=== PATIENT | male | born 1945 | race Caucasian/White ===

== ENCOUNTER 2020-12-21 21:36 | Emergency (ER) | payer OTHER, SELFPAY ==
--- NOTE | 2020-12-21 21:38 | DI.CT.S_ITS ---
PROCEDURE: CT HEAD/BRAIN WO CON INDICATIONS: fall with head injury on Xarelto TECHNIQUE: Noncontrast 4.5 mm thick angled axial sections acquired from the foramen magnum to the vertex, with coronal and sagittal reformats. For radiation dose reduction, the following was used: automated exposure control, adjustment of mA and/or kV according to patient size. COMPARISON: None. FINDINGS: Image quality: Excellent. CSF spaces: Basal cisterns are patent. There are bilateral extra-axial fluid collections comprised of mixed density thin subdural hematomas, slightly greater on the right than the left. There is a ventriculostomy catheter that tracks from the right frontal parietal junction to 2 extend to the upper tip of the 3rd ventricle.. The ventricles are symmetric in size and shape. Prior sub of septal craniotomy on the left. This enlarges the 4th ventricle and the adjacent basilar cisterns. Brain: No intracranial bleeds or masses. There is cerebral volume loss for age, with resultant ventricular and sulcal prominence. There are periventricular and deep white matter chronic small vessel ischemic changes. There is intracranial internal carotid artery atherosclerosis. Skull and face: Calvarium and visualized facial bones appear intact, without suspicious lesions. Sinuses: Visualized sinuses and mastoids are clear. IMPRESSION: Ventriculostomy in place from left-sided approach with no sign of ventriculomegaly. Expected postsurgical changes of left suboccipital craniotomy. 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 Two subdural hematomas are present, thin, predominantly chronic in appearance but with several striations of high density material suggestive of recent slight acute additional hemorrhage. For example, series 2, image 14 on the right frontal region, and a similar appearance on the left at the frontal region also, series 2, image 17. Maximal subdural hematoma thickness on the left measures up to 9 mm, and on the right measures up to 4 mm. Dictated by: Catracho Mae M.D. on 12/22/2020 at 10:58 Approved by: Catracho Mae M.D. on 12/22/2020 at 11:01
[2020-12-21 21:51] VITALS: BP 129/72; PULSE 88; RESP 19; TEMP 36.7; O2SAT 96; BMI 29.1
--- NOTE | 2020-12-21 22:01 | ED.FALL ---
HPI - Fall General Chief Complaint: Fall Stated Complaint: GLF Hit head Time Seen by Provider: 12/21/20 21:36 Source: patient Mode of arrival: EMS History of Present Illness HPI Narrative: 75-year-old male nonsmoker with history of a prior intracranial hemorrhage, prior stroke, Atrial fib on Xarelto presents by EMS for a fall from ground level with head injury just prior to arrival. He was walking on some uneven ground and slipped in the grass and fell backwards striking his head. He may have had a brief loss of consciousness but quickly returned to his baseline mentation. 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 At baseline he slurs his words. He has a vague 2/10 headache He has no repeated questioning, vomiting or localizing neurologic symptoms. He does have a vague headache. A He denies other injury and is otherwise well and free of complaint. He is activated as a modified trauma due to fall with head injury on blood thinners Related Data Home Medications Medication Instructions Recorded Confirmed apixaban 5 mg tablet (Eliquis) 5 mg PO BID 04/25/20 dofetilide 125 mcg capsule 125 mcg PO ONCE 04/25/20 (Tikosyn) furosemide 20 mg tablet 10 mg PO QAM 04/25/20 metoprolol succinate 50 mg capsule 50 mg PO DAILY 04/25/20 sprinkle, ext. release 24 hr spironolactone 25 mg tablet 25 mg PO DAILY 04/25/20 aspirin 81 mg tablet,delayed 81 mg PO DAILY 04/29/20 04/29/20 release (Adult Aspirin Regimen) calcium carbonate 500 mg calcium 500 mg PO DAILY 04/29/20 04/29/20 (1,250 mg) tablet (Calcium 500) ejlgnflkqpy-hvo-ytryvemtt-hrb tab PO 04/29/20 04/29/20 149-hyalur 500 mg-500 mg-66.7 mg tablet (Srwffngnboj-Omuxvicicct-FAC (with antiox)) triamcinolone acetonide 0.1 % 1 applictn TOP DAILY 04/29/20 04/29/20 topical cream rosuvastatin 5 mg tablet 5 mg PO DAILY 12/16/20 12/16/20 Previous Rx's Medication Instructions Recorded tamsulosin 0.4 mg capsule 0.4 mg PO BEDTIME #90 cap 05/19/20 dutasteride 0.5 mg capsule 0.5 mg PO DAILY #90 cap 10/14/20 (Avodart) Allergies Allergy/AdvReac Type Severity Reaction Status Date / Time No Known Drug Allergies Allergy Verified 12/16/20 08:33 Review of Systems Review of Systems Narrative: GENERAL: Denies chills, fatigue, malaise, fever, sweats. HEENT: Denies sinus pain, ear pain, sore throat, difficulty swallowing, dizziness. RESPIRATORY: Denies dyspnea, cough, wheezing, hemoptysis, sputum. CARDIOVASCULAR: Denies chest pain, palpitations, orthopnea, edema, GASTROINTESTINAL: Denies nausea, vomiting, abdominal pain, diarrhea, constipation, melena. : Denies dysuria, frequency, incontinence, hematuria, urinary retention. MUSCULOSKELETAL: denies weakness, joint pain, or bony pain SKIN: Denies rash, skin lesions, or other NEUROLOGIC: Denies weakness, headache, numbness, change in speech, confusion, seizures, incoordination. PSYCHIATRIC: No concerning psychosocial issues. 12 point review of systems is negative except for those stated above Patient History Medical History BPH w urinary obs/LUTS Congestive heart failure Elevated PSA Enlarged prostate with lower urinary tract symptoms (LUTS) GERD (gastroesophageal reflux disease) History of elevated PSA History of UTI Incomplete bladder emptying Neurological disease Personal history UTI Prostate cancer Retention of urine Surgical History H/O carpal tunnel repair H/O cystoscopy H/O prostate biopsy H/O vasectomy Family History Father Gout Hearing impairment Brother Inflammatory bowel disease Social History marital status: number of children: 3 occupational status: previously employed Previous occupational history: dentist Smoking Status: Never smoker alcohol intake: current caffeine: Yes Smoking Status: Never smoker alcohol intake frequency: a few times a week Substance Use Type: does not use Exam Narrative Exam Narrative: GENERAL: [75] year old patient appears stated age. Well-developed patient, in mild distress. GCS 15 HEAD: Atraumatic. Normocephalic. Mild scalp contusion left occiput EYES: Pupils equal round and reactive. Extraocular motions intact. No scleral icterus. No injection or drainage. ENT: Nose without bleeding, purulent drainage. Throat without erythema, tonsillar hypertrophy or exudate. Airway patent. NECK: Trachea midline. Non tender CARDIOVASCULAR: Regular rate and rhythm without murmurs, gallops, or rubs. RESPIRATORY: Clear to auscultation. Breath sounds equal bilaterally. No wheezes, rales, or rhonchi. GASTROINTESTINAL: Abdomen soft, non-tender, nondistended. EXTREMITIES: No edema or joint tenderness. BACK: Nontender without deformity or crepitance. No flank tenderness. NEURO: AOx3. SKIN: No rash or erythema of visible areas Initial Vital Signs Initial Vital Signs: Vital Signs Temperature 98.1 F 12/21/20 21:51 Pulse Rate 88 12/21/20 21:51 Respiratory Rate 19 12/21/20 21:51 Blood Pressure 129/72 12/21/20 21:51 Pulse Oximetry 96 12/21/20 21:51 Course Orders Ordered: Discontinued Medications Prothrombin Complex Concent ( Human) 2,000 unit/Miscellaneous 80 mls @ 702.158 mls/hr IV NOW ONE; Protocol Stop: 12/21/20 23:14 Last Infusion: 12/22/20 00:07 Dose: 0 unit/kg/min, 0 mls/hr Documented by: Admin: 12/21/20 23:45 Dose: 3 unit/kg/min, 702.158 mls/hr Documented by: [email or web address] Consultations Consultation #1: Dr. Adan happy to accept at [facility] [place] Vital Signs Vital signs: Vital Signs - 8 hr 12/21/20 21:51 12/21/20 22:35 12/21/20 23:00 Temperature 98.1 F Pulse Rate 88 85 87 Respiratory Rate 19 27 H 26 H Blood Pressure 129/72 Pulse Oximetry 96 95 97 12/21/20 23:02 Temperature Pulse Rate 85 Respiratory Rate Blood Pressure 129/72 Pulse Oximetry MDM - Fall Lab Data Result diagrams: 12/21/20 22:19 12/21/20 22:19 Labs: Lab Results 12/21/20 12/21/20 12/21/20 Range/Units 22:19 22:19 22:19 WBC 10.9 Cancelled (4.5-11.0) X10^3/uL RBC 4.19 L Cancelled (4.5-5.9) X10^6/uL Hgb 13.2 L Cancelled (13.5-17.5) g/dL Hct 40.4 L Cancelled (41-53) % MCV 95.8 Cancelled (80-100) fL MCH 31.8 Cancelled (26-34) PG MCHC 33.2 Cancelled (30-36) % RDW 13.8 Cancelled (11.6-14.8) % Plt Count 291 Cancelled (150-400) X10^3/uL Neut % (Auto) 65.1 Cancelled (50-75) % Lymph % (Auto) 18.3 L Cancelled (25-40) % [place] % (Auto) 12.4 Cancelled (3-14) % Eos % (Auto) 3.5 Cancelled (2-4) % Baso % (Auto) 0.7 Cancelled (0-2) % Neut # (Auto) 7100 H Cancelled (4287-4287) /uL Lymph # (Auto) 2000 Cancelled (5038-9582) /uL [place] # (Auto) 1300 H Cancelled (0-900) /uL Eos # (Auto) 400 Cancelled (0-450) /uL Baso # (Auto) 100 Cancelled (0-100) /uL PT 12.2 (10.1-12.7) SECONDS INR 1.1 (0.9-1.3) Sodium (137-145) mmol/L Potassium (3.4-5.1) mmol/L Chloride (98-107) mmol/L Carbon Dioxide (22-32) mmol/L BUN (9-20) mg/dL Creatinine (0.66-1.25) mg/dL Estimated GFR (>60) mL/min BUN/Creatinine Ratio (6-22) Glucose (80-110) mg/dL Calcium (8.4-10.2) mg/dL SARS-CoV-2 (PCR) (Negative) 12/21/20 12/21/20 Range/Units 22:19 22:57 WBC (4.5-11.0) X10^3/uL RBC (4.5-5.9) X10^6/uL Hgb (13.5-17.5) g/dL Hct (41-53) % MCV (80-100) fL MCH (26-34) PG MCHC (30-36) % RDW (11.6-14.8) % Plt Count (150-400) X10^3/uL Neut % (Auto) (50-75) % Lymph % (Auto) (25-40) % [place] % (Auto) (3-14) % Eos % (Auto) (2-4) % Baso % (Auto) (0-2) % Neut # (Auto) (4706-0137) /uL Lymph # (Auto) (8294-8126) /uL [place] # (Auto) (0-900) /uL Eos # (Auto) (0-450) /uL Baso # (Auto) (0-100) /uL PT (10.1-12.7) SECONDS INR (0.9-1.3) Sodium 137 (137-145) mmol/L Potassium 4.1 (3.4-5.1) mmol/L Chloride 102 (98-107) mmol/L Carbon Dioxide 29 (22-32) mmol/L BUN 13 (9-20) mg/dL Creatinine 0.70 (0.66-1.25) mg/dL Estimated GFR > 60.0 (>60) mL/min BUN/Creatinine Ratio 18.6 (6-22) Glucose 103 (80-110) mg/dL Calcium 9.0 (8.4-10.2) mg/dL SARS-CoV-2 (PCR) Negative (Negative) Imaging Data CT scan - head: Radiologist's Impression: Bilateral frontal temporal subdural with 5 mm midline shift Critical Care Time Critical Care Time Attestation: The high probability of a clinically significant, sudden or life threatening deterioration of the [Neuro] system(s) required my full and direct attention, intervention and personal management. The aggregate critical care time was [30] minutes. This time is in addition to time spent performing reported procedures but includes the following: [x] Data Review and interpretation x[] Patient assessment and monitoring of vital signs [x] Documentation [x] Medication orders and management Discharge Plan Departure Patient Disposition: [facility] Clinical Impression: Acute subdural hematoma, Anticoagulation adequate Prescriptions: No Action dofetilide [Tikosyn] 125 mcg capsule 125 mcg PO ONCE RF: 0 furosemide 20 mg tablet 10 mg PO QAM RF: 0 Eliquis 5 mg tablet 5 mg PO BID RF: 0 spironolactone 25 mg tablet 25 mg PO DAILY RF: 0 metoprolol succinate 50 mg capsule,sprinkle,ER 24hr 50 mg PO DAILY RF: 0 tamsulosin 0.4 mg capsule 0.4 mg PO BEDTIME Qty: 90 RF: 3 dutasteride [Avodart] 0.5 mg capsule 0.5 mg PO DAILY Qty: 90 RF: 3 triamcinolone acetonide 0.1 % cream 1 applictn TOP DAILY RF: 0 aspirin [Adult Aspirin Regimen] 81 mg tablet,delayed release (DR/EC) 81 mg PO DAILY RF: 0 eoacowos-qjt-wsnwd-big333-yfcl [Thynvz-Tnrez-IXM (with antiox)] 500-500-66.7 mg tablet PO RF: 0 calcium carbonate [Calcium 500] 500 mg calcium (1,250 mg) tablet 500 mg PO DAILY RF: 0 rosuvastatin 5 mg tablet 5 mg PO DAILY RF: 0 Referrals: Lillian Siddiqui MD [Primary Care Provider] -
[2020-12-21 22:35] VITALS: PULSE 85; RESP 27; O2SAT 95
[2020-12-21 23:00] VITALS: PULSE 87; RESP 26; O2SAT 97
[2020-12-21 23:00] LABS: BUN Creatinine Ratio 18.6 (6-22); Blood Urea Nitrogen 13 mg/dL (9-20); Carbon Dioxide 29 mmol/L (22-32); Chloride 102 mmol/L (98-107); Estimated Glomerular Filt Rate > 60.0 mL/min (>60); Glucose 103 mg/dL (80-110); HEMOLYSIS < 15 (0-50); Potassium 4.1 mmol/L (3.4-5.1); Sodium 137 mmol/L (137-145)
[2020-12-21 23:02] VITALS: BP 129/72; PULSE 85
[2020-12-21 23:04] LABS: Add Manual Diff / Slide Review NO; Basophils Absolute Auto 100 /uL (0-100); Basophils Percent Auto 0.7 % (0-2); Eosinophils Absolute Auto 400 /uL (0-450); Eosinophils Percent Auto 3.5 % (2-4); INR 1.1 (0.9-1.3); Lymphocytes Absolute Auto 2000 /uL (1100-4500); Lymphocytes Percent Auto 18.3 % (25-40); Mean Corpuscular HGB Conc 33.2 % (30-36); Mean Corpuscular Hemoglobin 31.8 PG (26-34); Mean Corpuscular Volume 95.8 fL (80-100); Monocytes Absolute Auto 1300 /uL (0-900); Monocytes Percent Auto 12.4 % (3-14); Neutrophils Absolute Auto 7100 /uL (1500-7000); Neutrophils Percent Auto 65.1 % (50-75); Platelet Count 291 X10^3/uL (150-400); Prothrombin Time 12.2 SECONDS (10.1-12.7); Red Blood Cell Count 4.19 X10^6/uL (4.5-5.9); Red Cell Distribution Width 13.8 % (11.6-14.8); White Blood Cell Count 10.9 X10^3/uL (4.5-11.0)
[2020-12-21 23:05] LABS: Hemoglobin 13.2 g/dL (13.5-17.5)
[2020-12-21 23:06] LABS: Hematocrit 40.4 % (41-53)
[2020-12-21 23:20] VITALS: BP 142/87; PULSE 91; RESP 10
[2020-12-21 23:30] VITALS: PULSE 85; RESP 10; O2SAT 98
[2020-12-21] MEDS: PROTHROMBIN CPLX(PCC)4FACT 2,000 UNIT in ISOOSMOTIC VEHICLE 0 ML 702.158 ML IV (23:45)
[2020-12-22 00:04] LABS: COVID19 - ADMIT (NP swab/PCR) Negative (Negative)
== END 2020-12-22 00:12 | disposition short-term general hospital (02) ==
PROVIDERS: Emergency Provider Emergency Medicine; PCP Family Medicine
DX: S06.5X9A Traumatic subdural hemorrhage with loss of consciousness of unspecified duration, initial encounter (principal); Z79.01 Long term (current) use of anticoagulants; W18.09XA Striking against other object with subsequent fall, initial encounter; Z20.822 Contact with and (suspected) exposure to COVID-19
CPT/HCPCS: 36415; 70450; 80048; 85014; 85018; 85025; 85610; 87635; 96365; 99284; 99291; C9803; J7168

== ENCOUNTER 2023-12-26 10:37 | Day surgery (SDC) | payer OTHER, SELFPAY ==
[2023-12-16 13:57] VITALS: BMI 28.5
[2023-12-26] VITALS (14 sets, daily range): BP systolic 101–121; BP diastolic 58–73; PULSE 52–82; RESP 12–18; TEMP 36.2–36.4; O2SAT 92–99; BMI 28.5
--- NOTE | 2023-12-26 | PATH_ITS ---
[facility] Accession Number: [id number] No. of containers..01 Tissue . 01 Material submitted: . prostate - PROSTATE CHIPS . 01 Diagnosis: PROSTATE CHIPS (WEIGHT LESS THAN 1 GRAM): Electrocauterized portions of bneign prostatic tissue with glandular and stromal hyperplasia. Negative for glandular atypia or malignancy. LYK 12/28/2023 0907 Local . 01 Electronically signed: . Annia Koenig MD, Pathologist NPI- [id number] . 01 Gross description: . Received in formalin with two identifiers and prostate chips, are multiple abraham soft tissue fragments admixed with hemorrhagic material weighing less than 1 gram and aggregating to 2.2 x 1.9 x 0.3 cm. Filtered and submitted entirely in cassette A1. ([id number]) /JOSEFINA 12/27/2023 0935 Local . 01 Pathologist provided ICD-10: N40.1, N32.0, R33.9 . 01 CPT . 531391 Specimen Comment: A courtesy copy of this report has been sent to [phone] Performed at: [address] [id number] MD You Liang MD Phone: [phone]
--- NOTE | 2023-12-26 11:07 | PM.PREOP ---
Pre-operative Note Interval Note History & Physical reviewed/Exam performed by Physician: Yes Changes to H&P: No
[2023-12-26] MEDS: ACETAMINOPHEN IV 1,000 MG/100 ML VIAL 400 MG IV (11:19)
[2023-12-26] MEDS: LACTATED RINGERS 1,000 ML 42 ML IV (11:19)
[2023-12-26] MEDS: CEFAZOLIN 2 GM/100 ML PREMIX 100 ML IV (12:05)
--- NOTE | 2023-12-26 12:19 | SUR.OPER ---
Lithotomy on padded OR bed, head on pillow, arms secured on padded arm boards at <90 degrees abduction. Legs secured in padded yellow fins stirrups.
[2023-12-26] MEDS: TRANEXAMIC ACID 1,000 MG in SODIUM CHLORIDE 0.9% 100 ML 200 MG IV ×2 (12:32→13:02)
--- NOTE | 2023-12-26 13:27 | P.OP_ITS ---
Operative Date/Time/Diagnoses Date of procedure: 12/26/23 Time of procedure: 13:13 Pre-op diagnosis: 1. Bladder outlet obstruction due to BPH. 2. Incomplete bladder emptying. 3. Failure and intolerance to medical therapy. Post-op diagnosis: same Procedure & Clinicians Procedure: 1. Robot water jet prostate ablation (Aquablation). 2.cystoscopy/Transurethral resection of prostate. 3. Transrectal ultrasound. Same procedure as scheduled: Yes Indications: 1. Bladder outlet obstruction due to BPH. 2. Incomplete bladder emptying. 3. Failure/intolerance to medical therapy. Surgeon: Jin Smith Click Yes if Unassisted: Yes Anesthesia Type: General Operative Notes Findings: 1. Urethra-normal caliber without annular stricture or lesion. 2. External sphincter coapted with normal overlying urothelium and vascularity. 3. Prostate-4.5+ cm length with obstructing trilobar hyperplasia, but predominantly lateral lobe. 4. Bladder-1 to 2+ trabeculation. Normal ureteral orifices bilaterally. Impressive bilobar intravesical protrusion. No stone, tumor, neoplasm or diverticulum seen. Closure Type: not applicable Specimen(s): other (TUR prostate chips) Applied: catheter (Three-way 22 Angolan hematuria catheter with normal saline CBI.) Estimated Blood Loss (mL): 5 Blood products transfused: none Procedure in detail: The patient was positioned supine was administered general anesthesia. He was then repositioned semi-lithotomy and the lower abdomen, genitalia, and groin were then prepped and draped in sterile fashion. 60 cc of lubricating jelly were then instilled in the rectal vault in the transrectal ultrasound probe was positioned with the vault standard fashion. Appropriate images were obtained in the transverse and sagittal planes for orientation and positioning. Next the robotic hand piece was inserted lower urinary tract and under direct visualization and positioned parallel on coaxial to the transrectal ultrasound probe. The hand piece lens was then withdrawn to a point just proximal to the external sphincter. Next, the jet positioned at the 3 and 9 locations was confirmed under mid sagittal transrectal ultrasonography. Now the treatment depth were measured and set in the transverse plane at the midpoint of prostate of greatest circumferential dimension. Now, back in the mid sagittal plane jet position at the scope tip was identified and calibrated. Initial treatment plan identifying proximal leading edge of tissue to be treated, bladder neck, mid prostate, and scope tip were then identified and marked. Fine tuning of these anatomic locations was then conducted. The 1st pass was then conducted under surgeon control and real time monitoring via transrectal ultrasonography in the midline sagittal plane. Adjustments were now made in the anatomic landmarks of leading edge of prostate treatment, bladder neck, mid prostate, and scope tip. A 2nd pass was then performed again under direct Surgeons control and real-time monitoring. The robotic hand piece was then removed and the resectoscope was passed lower urinary tract under direct and ultrasonographic guidance. Bladder contents were then irrigated clear with the [employer] he evacuator. The resectoscope was then fitted with the resecting loop and focal bladder neck cautery was conducted at the 3 and 9 positions. Additional treated tissue was removed with the resecting loop circumferentially at the bladder neck to a prostate of the mid prostatic urethra. Tissue fragments in TUR chips were then evacuated from the bladder utilizing both the [employer] evacuator and manually with the resecting loop. The bl adder is was then left partially filled and the resectoscope was removed. A 22 Angolan three-way hematuria catheter was then advanced in lower urinary tract over a catheter guide. The balloon was then inflated to 30 cc. It was irrigated clear with a catheter tip syringe and then attached to continuous 3 way normal saline CBI. The patient was then repositioned in supine, was awakened, transferred to [facility], then transferred to recovery in stable condition. Complications: none Post-operative Condition: stable Disposition: PACU Plan for aftercare: 1. Observe in PACU on CBI. 2. Anticipate discharge this day.
== END 2023-12-26 16:40 | disposition home or self-care (01) ==
LOC: OR 10:38 → AC 10:44
PROVIDERS: PCP Family Medicine; Referring Provider Specialist; Visit Provider Specialist
PROC: 0VT08ZZ Resection of Prostate, Via Natural or Artificial Opening Endoscopic (ICD-10-PCS; CPT 52597; principal; 2023-12-26 11:45)
DX: N40.1 Benign prostatic hyperplasia with lower urinary tract symptoms (principal); R33.9 Retention of urine, unspecified; N32.0 Bladder-neck obstruction
CPT/HCPCS: 0421T; C2596; J0136; J0690; J1100; J2405; J3010

== ENCOUNTER → 2023-12-28 15:47 | Outpatient (CLI) | payer OTHER, SELFPAY | PROVIDERS: PCP Family Medicine; Visit Provider Specialist | DX: R33.9 Retention of urine, unspecified (principal) | CPT/HCPCS: 87086 ==

== ENCOUNTER → 2023-12-29 09:56 | Outpatient (CLI) | payer OTHER, SELFPAY | PROVIDERS: PCP Family Medicine; Visit Provider Specialist | DX: Z87.440 Personal history of urinary (tract) infections (principal) | CPT/HCPCS: 87086 ==

== ENCOUNTER → 2024-01-02 16:26 | Outpatient (CLI) | payer OTHER, SELFPAY | PROVIDERS: PCP Family Medicine; Visit Provider Specialist | DX: Z87.440 Personal history of urinary (tract) infections (principal); N40.1 Benign prostatic hyperplasia with lower urinary tract symptoms; N13.8 Other obstructive and reflux uropathy | CPT/HCPCS: 87086 ==

== ENCOUNTER → 2024-01-03 09:59 | Outpatient (CLI) | payer OTHER, SELFPAY | PROVIDERS: PCP Family Medicine; Referring Provider Specialist; Visit Provider Specialist | DX: Z87.440 Personal history of urinary (tract) infections (principal) | CPT/HCPCS: 87086 ==

== ENCOUNTER → 2024-01-04 10:58 | Outpatient (CLI) | payer OTHER, SELFPAY | PROVIDERS: PCP Family Medicine; Visit Provider Specialist | DX: R33.9 Retention of urine, unspecified (principal); Z87.440 Personal history of urinary (tract) infections | CPT/HCPCS: 51798; 81002; 87077; 87086; 87186 ==